=== PATIENT | male | born 2005 | race Two or more races ===

== ENCOUNTER 2024-06-10 15:06 | Emergency (ER) | payer BC ==
[2024-06-10 15:23] VITALS: BP 120/74; PULSE 77; RESP 17; TEMP 97.9; BMI 24.0
== END 2024-06-10 16:28 | disposition home or self-care (01) ==
LOC: JERFT 15:06
DX: Z48.01 Encounter for change or removal of surgical wound dressing (principal)
CPT/HCPCS: 99281-25